=== PATIENT | male | born 1965 | race Caucasian/White ===

== ENCOUNTER 2024-01-21 07:53 | Emergency (ER) | payer MEDICARE, SELFPAY ==
--- NOTE | ~2024-01-21 | CT_ITS ---
EXAMINATION: CT cervical spine wo con DATE: 01/21/2024 08:32 INDICATION: Intermittent right arm paresthesias. TECHNIQUE: Computed tomography (CT) of the cervical spine was performed without intravenous contrast. Automated exposure control and iterative reconstruction technique were employed. The dose-length pro duct was 424.05 mGy-cm. COMPARISON: None FINDINGS: There is 4 degrees levocurvature of cervical spine. There is mild kyphosis of cervical spin e. Vertebral body heights are normal. There is moderately decreased disc height at C5-C6 and C6-C7. T he following disc levels are specifically discussed: C2-C3: There is no uncovertebral joint osteoarthritis. There is severe right and moderate left facet joint osteoarthritis. There is mild right neural foraminal stenosis. There is no central canal stenos is. C3-C4: There is mild bilateral uncovertebral joint osteoarthritis. There is severe bilateral facet melissa int osteoarthritis. There is moderate right and mild left neural foraminal stenosis. There is no cent ral canal stenosis. C4-C5: There is no uncovertebral joint osteoarthritis. There is severe right and mild left facet join t osteoarthritis. There is mild right neural foraminal stenosis. There is mild central canal stenosis . C5-C6: There is mild right and severe left uncovertebral joint osteoarthritis. There is severe right and mild left facet joint osteoarthritis. There is mild right and moderate left neural foraminal sten osis. There is mild central canal stenosis. C6-C7: There is severe bilateral uncovertebral joint osteoarthritis. There is mild bilateral facet melissa int osteoarthritis. There is mild right and moderate left neural foraminal stenosis. There is mild ce ntral canal stenosis. C7-T1: There is no uncovertebral joint osteoarthritis. There is mild bilateral facet joint osteoarthr itis. There is no neural foraminal stenosis. There is no central canal stenosis. IMPRESSION: 1. Moderate cervical spondylosis. Reviewed, dictated and finalized at location A.
--- NOTE | ~2024-01-21 | XR_ITS ---
EXAMINATION: XR shoulder RT min 2V DATE: 01/21/2024 08:37 INDICATION: Right shoulder pain and numbness. TECHNIQUE: 4 views of right shoulder were obtained. COMPARISON: None. FINDINGS: Bone alignment is normal. No fracture. There is mild osteoarthritis of glenohumeral joint a nd acromioclavicular joint characterized by tiny osteophytes. IMPRESSION: 1. Mild polyarticular osteoarthritis. Reviewed, dictated and finalized at location A.
[2024-01-21 07:56] VITALS: BP 182/94; PULSE 81; RESP 20; TEMP 36.6; O2SAT 100
--- NOTE | 2024-01-21 07:58 | ED.GENADULT ---
HPI - General Adult General Chief complaint: Unspecified Stated complaint: right shoulder issues Time Seen by Provider: 01/21/24 07:57 Source: patient Mode of arrival: ambulatory Limitations: no limitations History of Present Illness HPI narrative: 58-year-old hdqvm-pjma-rljbjogj male presents with intermittent right shoulder on neck pain. He is concerned he has a pinched nerve. This has been going for the past 2-3 days. He finds it tends to be worse when he gets up in the morning and gets better with movement throughout the morning afternoon. He denies any imaging for this previously. He does not describe it as a stiffness. He previously took ibuprofen for various aches and pains but ran out of this. He has noticed that he will also have hand numbness he wakes up with the past several days, sometimes on the right and sometimes on the left. he has also been experiencing intermittent nausea although states this has not occurred this morning. He does not currently have a primary care physician. He states he previously had bone spurs on his spine that migrated to my hip. Related Data Allergies Allergy/AdvReac Type Severity Reaction Status Date / Time Penicillins Allergy Unknown Hives Verified 01/21/24 08:00 [facility] Past Medical History Medical History (Updated 01/21/24 @ 09:02 by Rachelle Ruano MD) Hyperlipidemia Right hand dominant Exam Narrative: GENERAL: Well-appearing, well-nourished, and in no acute distress. HEAD: Normocephalic, atraumatic. EYES: Non injected, non icteric ENT: Nares clear, no rhinorrhea or epistaxis. NECK: Supple. CHEST: Speaking in full sentences. No respiratory distress. HEART: Regular rate and rhythm. Symmetric 2+ bilateral radial pulses ABDOMEN: Soft, nondistended. EXTREMITIES: Normal range of motion. No edema. SKIN: Warm, dry, no rash. NEURO: No focal deficits. Alert and oriented x3. 5/5 strength with bilateral shoulder abduction and elbow flexion extension. Sensation intact to gross touch in bilateral hands as well as proximal bilateral is particularly over the deltoids. PSYCH: Normal mood and affect. Course Vital Signs Vital signs: Vital Signs Temperature 97.9 F 01/21/24 07:56 Pulse Rate 81 01/21/24 07:56 Respiratory Rate 20 01/21/24 07:56 Blood Pressure 182/94 H 01/21/24 07:56 Pulse Oximetry 100 05/29/24 07:56 Oxygen Delivery Room Air 01/21/24 07:56 Temperature 97.9 F 01/21/24 07:56 Pulse Rate 81 01/21/24 07:56 Respiratory Rate 20 01/21/24 07:56 Blood Pressure 182/94 H 01/21/24 07:56 Pulse Oximetry 100 01/21/24 07:56 Oxygen Delivery Room Air 01/21/24 07:56 Medical Decision Making [facility] Narrative Medical decision making narrative: 58-year-old Dzgxw-maax-rxbmccgd male presents with right superior aspect shoulder pain neck pain with intermittent paresthesias in his right arm as well as occasionally bilateral hands. In the emergency department he is afebrile with vital signs notable for hypertension. No prior visit or imaging for this. neurovascularly intact. Will give analgesic and pain plain film imaging of shoulder and CT C-spine without contrast. imaging without acute fracture dislocation. There is evidence of spondylosis and osteoarthritis. Discharged with Rx for analgesics as well as ondansetron if nausea recurs. Also provided contact info for a PCP for this and recheck of HTN. Differential Diagnosis Differential Diagnosis: brachial plexus injury, arthritis, degenerative disc disease Medical Records Medical records reviewed: Yes I reviewed the external patient's medical records. Medical records narrative: Not previously/ recently seen here. No prior imaging for this area per review of EMR. Vital Signs Vital Signs: Vital Signs Temperature 97.9 F 01/21/24 07:56 Pulse Rate 81 01/21/24 07:56 Respiratory Rate 20 01/21/24 07:56 Blood Pressure 182/94 H 01/21/24 07:56 Pulse Oxi
[2024-01-21] MEDS: ACETAMINOPHEN 500 MG TABLET 1000 MG PO (08:43)
[2024-01-21] MEDS: ONDANSETRON HCL ODT 4 MG TABLET PO (08:44)
[2024-01-21] MEDS: KETOROLAC 30 MG/ML VIAL (*BKC) 15 MG IM (09:08)
== END 2024-01-21 09:17 | disposition home or self-care (01) ==
PROVIDERS: Emergency Provider Student in an Organized Health Care Education/Training Program
DX: R20.2 Paresthesia of skin (principal); M19.011 Primary osteoarthritis, right shoulder; M47.812 Spondylosis without myelopathy or radiculopathy, cervical region; I10 Essential (primary) hypertension; E78.5 Hyperlipidemia, unspecified
CPT/HCPCS: 72125; 73030; 96372; 99284; A9270; J1885

== ENCOUNTER 2024-08-16 15:24 | Emergency (ER) | payer MEDICARE, SELFPAY ==
[2024-08-16 15:31] VITALS: BP 150/86; PULSE 82; RESP 18; TEMP 36.6; O2SAT 100
== END 2024-08-16 19:05 | disposition left against medical advice (07) ==
DX: Z53.21 Procedure and treatment not carried out due to patient leaving prior to being seen by health care provider (principal)
CPT/HCPCS: 99199

== ENCOUNTER 2024-09-16 14:58 | Outpatient (CLI) | payer MEDICARE, SELFPAY ==
--- NOTE | ~2024-09-16 | US_ITS ---
EXAMINATION: US venous doppler [facility] DATE: 09/16/2024 15:29 INDICATION: Left lower extremity swelling TECHNIQUE: Grayscale ultrasound images without and with compression and Doppler ultrasound images of the left lower extremity veins were obtained. COMPARISON: None. FINDINGS: The visualized portions of left common femoral vein, profunda (deep) femoral vein, femoral vein, popl iteal vein, peroneal veins, posterior tibial veins, and greater saphenous vein outflow are patent. IMPRESSION: 1. No deep venous thrombosis within the left lower extremity, as detailed above.. Reviewed, dictated and finalized at location A. NURSE IMPRESSION: 1. No deep venous thrombosis within the left lower extremity, as detailed brandy de la cruz.
--- OUTSIDE RECORDS SUMMARY | 2024-09-17 05:50 | XMS_ITS | Clinical Summary ---
Author Organization [facility] Address [address] [address] Care Team Providers Care Pigment Supplier Name Role Phone Unavailable Primary Care Provider Unavailabl e Source Comments [facility],non-owned Affiliates and Associated Physician Practices is amultiple site organization consisting of ambulatory clinics and hospital sitesin [place], [place], [place] and [place]. This disclosure is being madepursuant to the Care Everywhere program and may not contain all information available regarding this patient. Last updated 18.[facility] Allergies Active Allergy Reactions Criticality Noted Date Comments Penicillins Rash Medium 02/18/2019 Medications Be aware that medications may not be up to date on this document. Always verify current medications with the patient. No known medications Social History Tobacco Use Types Packs/Day Years Used Date Smoking Tobacco: Every Day Cigarettes Smokeless Tobacco: Never Alcohol Use Standard Drinks/Week Comments Yes 0 (1 standard drink = 0.6 oz pur e alcohol) 12 pack of beer a week Sex and Gender Information Value Date Recorded Sex Assigned at Not on file Gender Identity Not on file Sexual Orientation Not on file Last Filed Vital Signs Vital Sign Reading Time Taken Comments Blood Pressure 166/89 02/18/2019 7:23 AM CDT Pulse 64 02/18/2019 7:23 AM CDT Temperature 36.5 ??C (97.7 ??F) 02/18/2019 7:23 AM CD T Respiratory Rate 18 02/18/2019 7:23 AM CDT Oxygen Saturation 99% 02/18/2019 7:23 AM CDT Inhaled Oxygen Concentration - - Weight 65.8 kg (145 lb) 02/18/2019 7:23 AM CDT Height 162.6 cm (5' 4 ) 02/18/2019 7:23 AM CDT Body Mass Index 24.89 02/18/2019 7:23 AM CDT Plan of Treatment Health Maintenance Due Date Last Done Comments CARO (AGES 45-75) - COL ON CA SCREENING 1964 COLON MONITORING 1964 COLONOSCOPY - COLON CA SCREENING 1964 CT COLONOGRAPHY - COLON CA SCREENING 1964 Colorectal Cancer Screening 1964 FIT - COLON CA SCREENING 1964 FLEX SIG - COLON CA SCREENING 1964 LIPID TESTING 1964 HIV SCREENING 1979 HEPATITIS C SCREENING 06/07/1982 DTAP/TDAP/TD VACCINES (1 - Tdap) 1983 PNEUMOCOCCAL VACCINE 50+ (1 of 2 - PCV) 1983 PNEUMOCOCCAL VACCINE (1 of 2 - PCV) 1983 ZOSTER VACCINE (1 of 2) 2014 COVID-19 VACCINE ( - 2023-2 5 season) 2024 INFLUENZA VACCINE (#1) 2024 DEPRESSION SCREENING 08/25/2024 Respiratory Syncytial Virus (RSV) Vaccine Pt: or over 60 yrs (1 - 1-dose 75+ series) 2039 HEPATITIS B VACCINE Aged Out No longe r eligible based on patient's age to complete this topic HIB VACCINE Aged Out No longer eligi ble based on patient's age to complete this topic HPV VACCINE Aged Out No longer eligi ble based on patient's age to complete this topic MENINGOCOCCAL (Group B) VACCINE Aged Out No longer eligible based on patient's age to complete this topic MENINGOCOCCAL VACCINE Aged Out No siri usman eligible based on patient's age to complete this topic
--- OUTSIDE RECORDS SUMMARY | 2024-09-17 05:50 | XMS_ITS | Referral Summary ---
Author Organization [facility] Address [address] [place] [address] Care Team Providers Care Cement Truck Loader Name Role Phone Unavailable Primary Care Provider Unavailabl e Source Comments [facility],non-owned Affiliates and Associated Physician Practices is amultiple site organization consisting of ambulatory clinics and hospital sitesin [place], [place], [place] and [place]. This disclosure is being madepursuant to the Care Everywhere program and may not contain all information available regarding this patient. Last updated 18.[facility] Allergies Active Allergy Reactions Criticality Noted Date [...] 02/18/2019 7:23 AM CDT Plan of Treatment Not on file
--- OUTSIDE RECORDS SUMMARY | 2024-09-17 05:50 | XMS_ITS | Patient Health Summary ---
Author Organization [facility] Address [address] [place] [address] Care Team Providers Care News Library Director Name Role Phone Unavailable Primary Care Provider Unavailabl e Note from [facility],non-owned Affiliates and Associated Physician Practices is amultiple site organization consisting of ambulatory clinics and hospital sitesin [place], [place], [place] and [place]. This disclosure is being madepursuant to the Care Everywhere program and may not contain all information available regarding this patient. Last updated 18.[facility] Allergies * Penicillins(Rash) -Medium Criticality Medications Be aware that medications may not [...]
== END 2024-09-16 14:59 | disposition home or self-care (01) ==
PROVIDERS: PCP Family Medicine; Visit Provider Nurse Practitioner
DX: R60.0 Localized edema (principal)
CPT/HCPCS: 93971

== ENCOUNTER 2025-02-12 11:56 | Emergency (ER) | payer MEDICARE, SELFPAY ==
[2025-02-12] VITALS (7 sets, daily range): BP systolic 146–176; BP diastolic 79–101; PULSE 66–83; RESP 18–20; TEMP 36.6; O2SAT 99–100
--- NOTE | ~2025-02-12 | CT_ITS ---
CTA brain carotid Ordering provider: Rachelle Ruano MD History: . episodic dizziness; c/o neck pain/soreness . Comparison: February 12, 2025 Technique: CT angiogram head and neck was performed following timed intravenous injection of contrast . Thin slice axial images and reformatted coronal images were obtained. Three dimensional reformatted images of the brain were also obtained using a [id number] workstation. Radiation reduction technique ut ilized.The dose-length product was 922.38 mGy-cm. 100 mL Omnipaque 350 was given IV. FINDINGS: HEAD: --ANTERIOR AND MIDDLE CEREBRAL ARTERIES AND BRANCHES: Normal caliber and contour. --INTERNAL CAROTID ARTERIES: Mild atheromatous disease but no significant stenosis. No occlusion. --BASILAR ARTERY AND BRANCHES: Small caliber of the right intracranial vertebral artery with formatio n of the basilar artery from the left. Normal caliber and contour of the basilar artery. No atheromat ous disease. --POSTERIOR CEREBRAL ARTERIES: Normal caliber and contour --POSTERIOR COMMUNICATING ARTERIES: Not visualized which is probably related to congenital absence or small size. --ANEURYSM: None visualized. --BRAIN: Please refer to report of CT head performed the same day. --BONES AND SUPERFICIAL SOFT TISSUES: Please refer to report of CT head performed the same day. --PARANASAL SINUSES AND MASTOIDS: Please refer to report of CT head done the same day. NECK: --RIGHT CERVICAL CAROTID SYSTEM: Normal caliber and contour. Percent stenosis per NASCET criteria is 0%. No carotid dissection. Otherwise, no significant atheromatous disease or stenosis of the cervica l carotid system. --LEFT CERVICAL CAROTID SYSTEM: Normal caliber and contour. Percent stenosis per NASCET criteria is 0%. No carotid dissection. Otherwise, no significant atheromatous disease or stenosis of the cervical carotid system. --VERTEBRAL ARTERIES: Small caliber of the right vertebral artery. The left is of normal caliber and contour. --VISUALIZED AORTIC ARCH AND BRANCHING VESSELS: Normal caliber and contour. No significant atheromato us disease. --SOFT TISSUES: Tiny cysts in both thyroid lobes. --CERVICAL SPINE: Age appropriate degenerative changes. IMPRESSION: 1. Normal CTA head and neck. Percent stenosis per NASCET criteria is 0%. 2. Small caliber of the right vertebral artery. Reviewed, dictated and finalized at location A.
--- NOTE | ~2025-02-12 | XR_ITS ---
EXAMINATION: XR chest 2V DATE: 02/12/2025 13:50 INDICATION: Presyncope TECHNIQUE: PA and lateral views of the chest were obtained. COMPARISON: Chest radiograph dated 08/03/2012 FINDINGS: The lungs are clear with no focal airspace opacities, pulmonary edema, pleural effusion or pneumothor ax. The cardiomediastinal silhouette is normal. Mild thoracic spondylosis and chronic mild likely phy siologic anterior wedging of a few lower thoracic vertebral bodies. IMPRESSION: 1. No acute cardiopulmonary disease. Reviewed, dictated and finalized at location A.
--- NOTE | ~2025-02-12 | CT_ITS ---
CT brain wo con Ordering provider: Rachelle Ruano MD History: 59 years Male with . intermittent lightheadedness, chronic tinnitus . Comparison: None. Technique: CT of the head without contrast. Radiation reduction technique utilized.The dose-length pr oduct was 605.33 mGy-cm. FINDINGS: BRAIN PARENCHYMA AND CSF SPACES: Mild leukoaraiosis and diffuse cortical atrophy. Mild atheromatous d isease. Old lacunar infarct in the left insula. No midline shift, mass effect or hemorrhage. The bra in parenchyma and CSF spaces are otherwise normal. VISUALIZED PARANASAL SINUSES: Well aerated. MASTOIDS: Well aerated. BONES: The bones appear intact. SOFT TISSUES: Visualized nasopharynx is normal. Superficial soft tissues are normal. IMPRESSION: No acute intracranial findings. Reviewed, dictated and finalized at location A.
--- NOTE | 2025-02-12 13:09 | ECG_ITS ---
Test Date: 2025-02-12 13:24:50 Measurements Intervals [place] Rate: 67 P: 75 MT: 221 QRS: -26 QRSD: 94 T: 46 QT: 381 QTc: 403 Interpretive Statements SINUS RHYTHM WITH FIRST DEGREE AV BLOCK CONSIDER INFERIOR INFARCT, AGE INDETERMINATE BORDERLINE ST ABNORMALITY- LAT/HIGH LAT LEADS ABNORMAL ECG No previous ECG available for comparison Electronically Signed On 02-12-2025 13:43:48 CDT by Lee Campo D.O.
[2025-02-12 13:29] LABS: Basophils Absolute Auto 0.1 K/mm3 (0.0-0.1); Basophils Percent Auto 1.1 % (0.2-1.2); Eosinophils Absolute Auto 0.3 K/mm3 (0-0.3); Eosinophils Percent Auto 5.2 % (0-4.4); Hematocrit 44.2 % (42.0-52.0); Hemoglobin 15.2 g/dL (14.0-18.0); Immature Granulocyte Absolute 0.02 K/mm3 (0.00-0.031); Immature Granulocyte Percent A 0.3 % (0-0.5); Lymphocytes Absolute Auto 1.97 K/mm3 (0.9-3.2); Lymphocytes Percent Auto 30.3 % (18.3-44.2); Mean Corpuscular HGB Conc 34.4 g/dl (32-36); Mean Corpuscular Hemoglobin 31.6 pg (26-34); Mean Corpuscular Volume 91.9 fl (80-100); Mean Platelet Volume 9.3 fl (7.4-10.4); Monocytes Absolute Auto 0.6 K/mm3 (0.1-0.6); Monocytes Percent Auto 9.1 % (2.6-8.5); Neutrophils Absolute Auto 3.5 K/mm3 (1.3-6.7); Platelet Count Result 149 k/mm3 (150-375); Red Blood Count 4.81 M/mm3 (4.6-6.20); Red Cell Distribution Width 13.1 % (11.5-14.5); White Blood Count 6.5 K/mm3 (4.5-10.0)
--- NOTE | 2025-02-12 13:43 | PC.NURSE ---
Pt. to x-ray.
[2025-02-12 13:48] LABS: Alanine Aminotransferase 27 U/L (6-50); Albumin Level 3.5 g/dL (3.5-5.1); Alkaline Phosphatase 86 U/L (38-126); Anion Gap 5 mmol/L (4-12); Aspartate Amino Transferase 28 U/L (17-59); Bilirubin,Total 0.3 mg/dL (0.2-1.3); Blood Urea Nitrogen 12 mg/dL (9-20); Calcium 8.6 mg/dL (8.4-10.2); Carbon Dioxide 27 mmol/L (22-30); Chloride 103 mmol/L (98-107); Estimated CRCL calculation 73 ml/min; Estimated Glomerular Filt Rate > 60; Glucose 110 mg/dL (65-110); Potassium 4.1 mmol/L (3.4-5.0); Sodium 135 mmol/L (137-145); Total Protein 6.3 g/dL (6.3-8.2)
--- NOTE | 2025-02-12 14:24 | ED_ITS ---
HPI - General Adult General Chief complaint: Unspecified Stated complaint: many complaints Time Seen by Provider: 02/12/25 13:06 Source: patient Mode of arrival: ambulatory Limitations: no limitations History of Present Illness HPI narrative: Patient reports feeling lightheaded while driving. He describes it as a woozy sensation. Denies history of diabetes mellitus. Notes that when this occurs he will get numbness along bilateral top of his head. He denies any vertiginous symptoms, no spinning sensation. He also notes that he has been having insomnia and finds it difficult to sleep at night even when he is tired. When he does fall asleep sometimes he will wake up gasping for air and this is particularly been prominent over the past 2 days. He reports bilateral edema. He denies any history of heart failure. He states that 1 time he was told he had a heart murmur but then was told that this was no longer present. No history of diagnosed sleep apnea. Does not currently have a primary care physician so has not been able to be evaluated. He is retired but he used to work regularly and have a set schedule which helped with his sleeping pattern. He denies any dizziness. He states it feels like his equilibrium is off. Symptoms nearly always happen when he is seated and driving. Possible head movements while driving precede it but no positional changes of body (seated to standing, etc). He denies any shortness of breath but he states these episodes of lightheadedness occur he will breathe quickly to see if that helps. He denies any chest pain although he had some pain near his left axilla approximately 1 week ago. He denies any ear pain. He does have chronic bilateral tinnitus and use to have a lot of issues with his ears as a child (significant ear wax production and other issues requiring ENT). No hearing changes. Patient reports he had 1 previous episode of syncope for which he would to [place] in [place] and he felt similarly with 1 of his more recent episodes although he denies losing consciousness/muscle tone. Related Data Allergies Allergy/AdvReac Type Severity Reaction Status Date / Time Penicillins Allergy Unknown Hives Verified 02/12/25 12:02 [facility] Past Medical History Medical History Episode of syncope Hyperlipidemia Right hand dominant Social History Social History Occupation/Education: retired Exam 2 Narrative: GENERAL: Well-appearing, well-nourished, and in no acute distress. HEAD: Normocephalic, atraumatic. EYES: Non injected, non icteric. Horizontal and extraocular movements intact without nystagmus. ENT: Nares clear, no rhinorrhea or epistaxis. Gross auditory acuity intact. Tympanic membranes visualized bilaterally without effusion bulging or erythema. Scant cerumen but no impaction. NECK: Supple. No meningismus. CHEST: Speaking in full sentences. No respiratory distress. HEART: Regular rate and rhythm. . ABDOMEN: Soft, nondistended. No rigidity or guarding. Not peritoneal EXTREMITIES: Normal range of motion. sock indentation; but only Trace bilateral lower extremity edema on physical exam. SKIN: Warm, dry, no rash. NEURO: No focal deficits. Alert and oriented. Answering questions. Following commands. Normal speech without aphasia or dysarthria. PSYCH: Normal mood and affect. Course Vital Signs Vital signs: Vital Signs Temperature 97.8 F 02/12/25 11:59 Pulse Rate 83 02/12/25 11:59 Respiratory Rate 20 02/12/25 11:59 Blood Pressure 176/94 H 02/12/25 11:59 Pulse Oximetry 100 02/12/25 11:59 Oxygen Delivery Room Air 02/12/25 11:59 Temperature 97.8 F 02/12/25 11:59 Pulse Rate 82 02/12/25 17:27 Respiratory Rate 18 02/12/25 17:27 Blood Pressure 163/101 H 02/12/25 17:27 Pulse Oximetry 100 02/12/25 17:27 Oxygen Delivery Room Air 02/12/25 13:37 Medical Decision Making [facility] Narrative Medical decision making narrative: Tpmyr-rcui-dpzgyusp 59-year-old male presents with episodic lightheadedness particular a while driving. There have been several instances. He also notes that he has been having difficulty sleeping and when he is able to fall asleep will sometimes be gasping for air when he wakes up although he otherwise does not feel short of breath during his lightheadedness episodes. In the emergency department he is afebrile vital signs notable for hypertension. Very mild hyponatremia. This is chronic/stable. Although he did not have a syncopal episode recently, near syncope as a proxy for syncope. [place] Syncope Rule: Congestive heart failure history: No Hematocrit <30%: No EKG abnormal (changed or any non-sinus rhythm): No SOB symptoms: No SBP <90mmHg at triage: No Ortho stats are reviewed and reassuring. Patient is reassessed at 3:50 pm. He notes that while he was seated he did have a few brief and less intense episodes. He notes that the position of his head does sometimes bring on symptoms although he discusses pain and that it is movement of his neck. He was asymptomatic during his orthostatic assessment but we will proceed with CTA imaging of brain/carotid. I do believe he would benefit from a he sleep study for the episodes that he describes occurring at night. Patient does experience extravasation of contrast during CT per RN; appropriate protocols followed. CTA performed and interpreted as below. Otherwise stable for discharge. === Of note, I learned on 02/13/25 that patient had walked out without receiving his discharge instructions. He re-presented to the ED on this date and was apologetic. I met with patient in the waiting room and talked to him to make sure he understood his work up. He noted the swelling in the arm that experienced extravasation during CT had gone done (confirmed on palpation). He states that he was getting anxious because of how long he had been in the emergency department and I empathized with him and acknowledged that his workup had been delayed by multiple factors and apologized for that. I did acknowledge that because he had not been sleeping recently I could see how this would make him less resilient and more frustrating. He states he was actually able to get some sleep last night and had fewer problems. I did note that we would happily print of his discharge instructions again and and nurse did so and provided them to the patient. Vital Signs Vital Signs: Vital Signs Temperature 97.8 F 02/12/25 11:59 Pulse Rate 83 02/12/25 11:59 Respiratory Rate 20 02/12/25 11:59 Blood Pressure 176/94 H 02/12/25 11:59 Pulse Oximetry 100 02/12/25 11:59 Oxygen Delivery Room Air 02/12/25 11:59 Temperature 97.8 F 02/12/25 11:59 Pulse Rate 82 02/12/25 17:27 Respiratory Rate 18 02/12/25 17:27 Blood Pressure 163/101 H 02/12/25 17:27 Pulse Oximetry 100 02/12/25 17:27 Oxygen Delivery Room Air 02/12/25 13:37 Lab Data Lab results reviewed: Yes I reviewed the patient's lab results. 02/12/25 13:17 02/12/25 13:17 Labs: Lab Results 02/12/25 02/12/25 Range/Units 13:16 13:17 WBC 6.5 (4.5-10.0) K/mm3 RBC 4.81 (4.6-6.20) M/mm3 Hgb 15.2 (14.0-18.0) g/dL Hct 44.2 (42.0-52.0) % MCV 91.9 (80-100) fl MCH 31.6 (26-34) pg MCHC 34.4 (32-36) g/dl RDW 13.1 (11.5-14.5) % Plt Count 149 L (150-375) k/mm3 MPV 9.3 (7.4-10.4) fl Immature Gran % (Auto) 0.3 (0-0.5) % Neut % (Auto) 54.0 (45.5-73.1) % Lymph % (Auto) 30.3 (18.3-44.2) % [place] % (Auto) 9.1 H (2.6-8.5) % Eos % (Auto) 5.2 H (0-4.4) % Baso % (Auto) 1.1 (0.2-1.2) % Lymph # (Auto) 1.97 (0.9-3.2) K/mm3 [place] # (Auto) 0.6 (0.1-0.6) K/mm3 Eos # (Auto) 0.3 (0-0.3) K/mm3 Baso # (Auto) 0.1 (0.0-0.1) K/mm3 Abs Immat Gran (auto) 0.02 (0.00-0.031) K/mm3 Absolute Neuts (auto) 3.5 (1.3-6.7) K/mm3 Absolute Nucleated RBC 0.000 (0.0-0.012) K/mm3 Nucleated RBC % 0.0 (0.0-0.2) % Sodium 135 L (137-145) mmol/L Potassium 4.1 (3.4-5.0) mmol/L Chloride 103 (98-107) mmol/L Carbon Dioxide 27 (22-30) mmol/L Anion Gap 5 (4-12) mmol/L BUN 12 (9-20) mg/dL Creatinine 0.78 (0.7-1.3) mg/dL Estim Creat Clear Calc 73 ml/min Estimated GFR > 60 (59 - ) Glucose 110 (65-110) mg/dL Calcium 8.6 (8.4-10.2) mg/dL Total Bilirubin 0.3 (0.2-1.3) mg/dL AST 28 (17-59) U/L ALT 27 (6-50) U/L Alkaline Phosphatase 86 (38-126) U/L Troponin I < 0.012 (0.000-0.034) ng/mL NT-Pro-B Natriuret Pep 32 (19.9-100) pg/mL Total Protein 6.3 (6.3-8.2) g/dL Albumin 3.5 (3.5-5.1) g/dL Imaging Data Radiologist's impression: Impressions Chest X-Ray 02/12/25 13:53 IMPRESSION: 1. No acute cardiopulmonary disease. Head CT 02/12/25 14:55 IMPRESSION: No acute intracranial findings. Head/Neck CTA 02/12/25 18:51 IMPRESSION: 1. Normal CTA head and neck. Percent stenosis per NASCET criteria is 0%. 2. Small caliber of the right vertebral artery. ECG Data EKG #1: Attestation: I personally reviewed and interpreted this ECG as follows: ECG completion date: 02/12/25 ECG completion time: 13:24 Interpretation: Normal sinus rhythm at a rate of 67 beats per minute. DE interval is prolonged at 221 milliseconds consistent with a first-degree AV block. QRS 94. QT/QTC 381/396. Good R-wave progression across the precordial leads. No T-wave inversion. Discharge Plan Discharge Clinical Impression: Near syncope, Episodic lightheadedness, Bilateral tinnitus, Difficulty sleeping, Sleep-disordered breathing, Smoker Patient Disposition: Home Condition: Stable Instructions: Antibiotic Form, How to Stop Smoking (ED), Near Syncope (ED), Lightheadedness (ED), Insomnia (ED), Tinnitus (ED) Additional Instructions: It is important that you have a PCP. Because you do not have a primary care physician, the name of the doctors listed below. Alternatively, you can try to follow up with the person your friend gave you. I believe you would benefit from a sleep study and your primary care physician can help arrange this. You can trial the prescribed medication if lightheadeness occurs again. Return to the emergency department with any new, worsening, or unmanaged symptoms. Patient Language: Mohawk Prescriptions: New meclizine 25 mg tablet,chewable 12.5 mg PO TID PRN (Reason: dizziness) Qty: 30 0RF No Action ibuprofen 600 mg tablet 600 mg PO TID PRN (Reason: pain) Qty: 30 0RF ondansetron 4 mg tablet,disintegrating 4 mg PO Q8H PRN (Reason: nausea and vomiting) Qty: 7 0RF acetaminophen 500 mg capsule 1,000 mg PO Q6H PRN (Reason: pain) Qty: 30 0RF Follow-up/Referrals: Uriah Escoto MD [Primary Care Provider] - Trell Warren MD [Physician] - (Family practice/primary care physician) Stand Alone Forms: Work/School Release IP Time of Disposition: 19:17
--- NOTE | 2025-02-12 14:43 | PC.NURSE ---
lab called to add on troponin and BNP.
[2025-02-12] MEDS: MECLIZINE HCL 25 MG TABLET PO (15:21)
[2025-02-12 15:42] LABS: NT Pro B Type Natriuretic Pept 32 pg/mL (19.9-100); Troponin I < 0.012 ng/mL (0.000-0.034)
--- NOTE | 2025-02-12 16:27 | PC.NURSE ---
CT notified that pt. has an IV and is ready for cat scan.
--- NOTE | 2025-02-12 17:15 | PC.NURSE ---
Dr. Ruano aware of the extravasation of RUE with contrast. Pt. starts he has no pain in his R. arm, it just feels heavy. R. bicep is firm. Strong radial pulse in RUE. RUE elevated and hot packs applied. Pt. demands that he is going outside to smoke a cigarette. Refused nicotine patch. IV removed and pt. walked outside. Pt. returned to room. Gait steady.
== END 2025-02-12 19:27 | disposition home or self-care (01) ==
PROVIDERS: Emergency Provider Student in an Organized Health Care Education/Training Program; PCP Internal Medicine
DX: R42 Dizziness and giddiness (principal); R55 Syncope and collapse; H93.13 Tinnitus, bilateral; G47.30 Sleep apnea, unspecified; G47.00 Insomnia, unspecified; E78.5 Hyperlipidemia, unspecified; F17.200 Nicotine dependence, unspecified, uncomplicated; I44.0 Atrioventricular block, first degree; R94.31 Abnormal electrocardiogram [ECG] [EKG]
CPT/HCPCS: 36415; 70450; 70496; 70498; 71046; 80053; 83880; 84484; 85025; 93005; 99284; A9270; Q9967